=== PATIENT | female | born 1945 | race Caucasian/White ===

== ENCOUNTER 2018-07-17 13:15 | Emergency (ER) | payer MEDICARE ==
[~2018-07-17] VITALS: Ht 165.1 cm; Wt 65.8 kg
[2018-07-17 13:45] VITALS: BP 144/73
--- NOTE | 2018-07-17 14:28 | EKG ---
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
[2018-07-17 14:44] LABS: BILIRUBIN,URINE NEGATIVE (NEG); CLARITY,URINE CLEAR; COLOR,URINE YELLOW; NITRITE,URINE NEGATIVE (NEG); PH,URINE 7.5; PROTEIN,URINE NEGATIVE (NEG-TRACE); UROBILINOGEN,URINE 0.2 mg/dL (0.2 mg/dL)
[2018-07-17 14:48] LABS: BASO % 1 % (0-3); CREATININE 1.1 mg/dL (0.6-1.0); EOS # 0.6 x10^3/uL (0.0-0.7); EOS % 8 % (0-3); GFR 48.8; HEMATOCRIT 42.4 % (36.0-47.0); HEMOGLOBIN 14.6 g/dL (12.0-15.5); LYMPH # 1.1 x10^3/uL (1.0-4.8); LYMPH % 15 % (24-48); MEAN CORPUSCULAR HEMOGLOBIN 31 pg (25-35); MEAN CORPUSCULAR HGB CONC 35 g/dL (31-37); MEAN CORPUSCULAR VOLUME 91 fL (79-100); MONO # 0.6 x10^3/uL (0.0-1.1); MONO % 8 % (0-9); NEUT % 69 % (31-73); PLATELET COUNT 175 x10^3/uL (140-400); POTASSIUM 3.5 mmol/L (3.5-5.1); RED BLOOD COUNT 4.66 x10^6/uL (3.50-5.40); RED CELL DISTRIBUTION WIDTH 13.6 % (11.5-14.5); WHITE BLOOD COUNT 7.2 x10^3/uL (4.0-11.0)
[2018-07-17 14:54] LABS: ALBUMIN 3.9 g/dL (3.4-5.0); ALBUMIN/GLOBULIN RATIO 1.3 (1.0-1.7); BACTERIA,URINE FEW /HPF (0-FEW); RBC,URINE OCC /HPF (0-2); SQUAMOUS EPITHELIAL CELL,UR FEW /LPF; TOTAL BILIRUBIN 0.7 mg/dL (0.2-1.0); TOTAL PROTEIN 6.8 g/dL (6.4-8.2); WBC,URINE OCC /HPF (0-4)
[2018-07-17] MEDS: IV NORMAL SALINE 1000ML BAG 1,000 ML IV ONE (15:05)
[2018-07-17] MEDS: ONDANSETRON PF 4 MG/2 ML VIAL. IV ONE (15:05)
--- NOTE | 2018-07-17 15:08 | RAD ---
PQRS Compliance Statement: One or more of the following individualized dose reduction techniques were utilized for this examination: 1. Automated exposure control 2. Adjustment of the mA and/or kV according to patient size 3. Use of iterative reconstruction technique CT HEAD WITHOUT CONTRAST History: Weakness Comparison: None. Technique: Axial images are obtained of the head from the skull base through the vertex without IV contrast. Findings: No mass-effect, midline shift, extra-axial fluid collection, hemorrhage, or obvious acute infarction is identified. Basilar cisterns are patent. The ventricles and sulci are prominent, consistent with age-related cerebral atrophy. There is mild supratentorial white matter hypoattenuation. This is a nonspecific finding but is commonly due to chronic small vessel ischemic disease. Bone windows demonstrate no acute calvarial abnormality. The visualized paranasal sinuses are clear. Mastoid air cells are well aerated. IMPRESSION: No acute intracranial abnormality. Electronically signed by: Burak Peterson MD (07/17/2018 2:46 PM) [id number] [id number]
--- NOTE | 2018-07-17 15:37 | RAD ---
Chest, 2 views, 07/17/2018: HISTORY: Shortness of breath, dizziness Comparison is made to a study from 04/13/2009. The left ventricle is mildly enlarged. There is calcific plaquing of the aorta. The pulmonary vascularity is normal. No pulmonary infiltrate is seen. There is no evidence of pleural fluid. Mild spurring is present in the spine. A surgical plate and screws is evident in the lower cervical spine. IMPRESSION: 1. Mild cardiomegaly and aortic atherosclerosis. 2. No acute abnormality is detected. Electronically signed by: Stanley Ray MD (07/17/2018 3:32 PM) [facility]
--- NOTE | 2018-07-17 15:46 | PHYS DOC ---
Past Medical History Past Medical History: High Cholesterol, Hypertension, Hypothyroid, Other Additional Past Medical Histor: insomnia Past Surgical History: Other Additional Past Surgical Histo: partial hysterectomy, thyroidectomy Additional Information: 1/2 ppd Alcohol Use: Occasionally Additional Information: reports drinking beer at least once per week Drug Use: None Adult General Chief Complaint Chief Complaint: WEAKNESS/GENERALIZED HPI HPI Patient is a 73 year old [f__sex] who presents with [] Review of Systems Review of Systems Constitutional: Denies fever or chills [] Eyes: Denies change in visual acuity, redness, or eye pain [] HENT: Denies nasal congestion or sore throat [] Respiratory: Denies cough or shortness of breath [] Cardiovascular: No additional information not addressed in HPI [] GI: Denies abdominal pain, nausea, vomiting, bloody stools or diarrhea [] : Denies dysuria or hematuria [] Musculoskeletal: Denies back pain or joint pain [] Integument: Denies rash or skin lesions [] Neurologic: Denies headache, focal weakness or sensory changes [] Endocrine: Denies polyuria or polydipsia [] All other systems were reviewed and found to be within normal limits, except as documented in this note. Current Medications Current Medications Current Medications Medications (Trade) Dose Ordered Sig/Stephen Start Time Stop Time Status Last Admin Dose Admin Ondansetron HCl (Zofran) 4 mg 1X ONCE 07/17/18 14:45 07/17/18 14:46 DC 07/17/18 15:05 4 MG Sodium Chloride 1,000 ml @ 1,000 mls/hr 1X ONCE 07/17/18 14:45 07/17/18 15:44 DC 07/17/18 15:05 1,000 MLS/HR Allergies Allergies Allergies Coded Allergies Type Severity Reaction Last Updated Verified No Known Drug Allergies 07/17/18 No Physical Exam Physical Exam Constitutional: Well developed, well nourished, no acute distress, non-toxic appearance. [] HENT: Normocephalic, atraumatic, bilateral external ears normal, oropharynx moist, no oral exudates, nose normal. [] Eyes: PERRLA, EOMI, conjunctiva normal, no discharge. [] Neck: Normal range of motion, no tenderness, supple, no stridor. [] Cardiovascular:Heart rate regular rhythm, no murmur [] Lungs & Thorax: Bilateral breath sounds clear to auscultation [] Abdomen: Bowel sounds normal, soft, no tenderness, no masses, no pulsatile masses. [] Skin: Warm, dry, no erythema, no rash. [] Back: No tenderness, no CVA tenderness. [] Extremities: No tenderness, no cyanosis, no clubbing, ROM intact, no edema. [] Neurologic: Alert and oriented X 3, normal motor function, normal sensory function, no focal deficits noted. [] Psychologic: Affect normal, judgement normal, mood normal. [] Current Patient Data Vital Signs Vital Signs Date Time Temp Pulse Resp B/P (MAP) Pulse Ox O2 Delivery O2 Flow Rate FiO2 07/17/18 13:45 97.5 67 18 144/73 (96) 94 Room Air 97.5 Lab Values Laboratory Tests Test 07/17/18 14:25 White Blood Count 7.2 x10^3/uL (4.0-11.0) Red Blood Count 4.66 x10^6/uL (3.50-5.40) Hemoglobin 14.6 g/dL (12.0-15.5) Hematocrit 42.4 % (36.0-47.0) Mean Corpuscular Volume 91 fL (79-100) Mean Corpuscular Hemoglobin 31 pg (25-35) Mean Corpuscular Hemoglobin Concent 35 g/dL (31-37) Red Cell Distribution Width 13.6 % (11.5-14.5) Platelet Count 175 x10^3/uL (140-400) Neutrophils (%) (Auto) 69 % (31-73) Lymphocytes (%) (Auto) 15 % (24-48) L Monocytes (%) (Auto) 8 % (0-9) Eosinophils (%) (Auto) 8 % (0-3) H Basophils (%) (Auto) 1 % (0-3) Neutrophils # (Auto) 5.0 x10^3uL (1.8-7.7) Lymphocytes # (Auto) 1.1 x10^3/uL (1.0-4.8) Monocytes # (Auto) 0.6 x10^3/uL (0.0-1.1) Eosinophils # (Auto) 0.6 x10^3/uL (0.0-0.7) Basophils # (Auto) 0.0 x10^3/uL (0.0-0.2) Urine Collection Type Unknown Urine Color Yellow Urine Clarity Clear Urine pH 7.5 Urine Specific Hunter 1.010 Urine Protein Negative mg/dL (NEG-TRACE) Urine Glucose (UA) Negative mg/dL (NEG) Urine Ketones (Stick) Negative mg/dL (NEG) Urine Blood Negative (NEG) Urine Nitrite Negative (NEG) Urine Bilirubin Negative (NEG) Urine Urobilinogen Dipstick 0.2 mg/dL (0.2 mg/dL) Urine Leukocyte Esterase Negative (NEG) Urine RBC Occ /HPF (0-2) Urine WBC Occ /HPF (0-4) Urine Squamous Epithelial Cells Few /LPF Urine Bacteria Few /HPF (0-FEW) Sodium Level 139 mmol/L (136-145) Potassium Level 3.5 mmol/L (3.5-5.1) Chloride Level 99 mmol/L (98-107) Carbon Dioxide Level 30 mmol/L (21-32) Anion Gap 10 (6-14) Blood Urea Nitrogen 22 mg/dL (7-20) H Creatinine 1.1 mg/dL (0.6-1.0) H Estimated GFR (Cockcroft-Gault) 48.8 BUN/Creatinine Ratio 20 (6-20) Glucose Level 97 mg/dL (70-99) Calcium Level 9.0 mg/dL (8.5-10.1) Total Bilirubin 0.7 mg/dL (0.2-1.0) Aspartate Amino Transferase (AST) 24 U/L (15-37) Alanine Aminotransferase (ALT) 26 U/L (14-59) Alkaline Phosphatase 120 U/L (46-116) H Troponin I Quantitative < 0.017 ng/mL (0.000-0.055) Total Protein 6.8 g/dL (6.4-8.2) Albumin 3.9 g/dL (3.4-5.0) Albumin/Globulin Ratio 1.3 (1.0-1.7) Laboratory Tests 07/17/18 14:25 Laboratory Tests 07/17/18 14:25 EKG EKG [] Radiology/Procedures Radiology/Procedures []PATIENT: SUNNY BRASHER MACCOUNT: [id number]#: [id number] : 1945 LOCATION: ER AGE: 73 SEX: F EXAM STATUS: PRE ER ORD. PHYSICIAN: JUVENAL CARROLL APRN REASON: weakness PROCEDURE: CT HEAD WO CONTRAST PQRS Compliance Statement: One or more of the following individualized dose reduction techniques were utilized for this examination: 1. Automated exposure control 2. Adjustment of the mA and/or kV according to patient size 3. Use of iterative reconstruction technique CT HEAD WITHOUT CONTRAST History: Weakness Comparison: None. Technique: Axial images are obtained of the head from the skull base through the vertex without IV contrast. Findings: No mass-effect, midline shift, extra-axial fluid collection, hemorrhage, or obvious acute infarction is identified. Basilar cisterns are patent. The ventricles and sulci are prominent, consistent with age-related cerebral atrophy. There is mild supratentorial white matter hypoattenuation. This is a nonspecific finding but is commonly due to chronic small vessel ischemic disease. Bone windows demonstrate no acute calvarial abnormality. The visualized paranasal sinuses are clear. Mastoid air cells are well aerated. IMPRESSION: No acute intracranial abnormality. Electronically signed by: Burak Peterson MD (07/17/2018 2:46 PM) [id number] DICTATED and SIGNED BY: BURAK PETERSON MD DATE: 07/17/18 1441 Course & Med Decision Making Course & Med Decision Making Pertinent Labs and Imaging studies reviewed. (See chart for details) [] Dragon Disclaimer Dragon Disclaimer This electronic medical record was generated, in whole or in part, using a voice recognition dictation system. Departure Departure Impression: Primary Impression: Weakness Additional Impression: Dehydration Disposition: HOME, SELF-CARE Condition: STABLE Referrals: RORY GARCIA Jr, MD (PCP) Patient Instructions: Dehydration, Adult Additional Instructions: Increase fluids and rest. Follow-up with your primary care provider for recheck in 3 days or return to the emergency department if worsening. I am prescribing Zofran in case you develope nausea. Take as directed. Scripts Ondansetron Hcl (ZOFRAN) 4 Mg Tablet 1 TAB PO Q6HRS for nausea, #20 TAB Prov: JUVENAL CARROLL APRN 07/17/18 Problem Qualifiers JUVENAL CARROLL APRN Jul 17, 2018 15:46
[2018-07-17] MEDS ORDERED: ONDA4TAB7 PO (15:56)
== END 2018-07-17 16:37 | disposition home or self-care (01) ==
LOC: ER 13:15
DX: E86.0 Dehydration (principal); R53.1 Weakness; E78.00 Pure hypercholesterolemia, unspecified; I10 Essential (primary) hypertension; E03.9 Hypothyroidism, unspecified; F17.200 Nicotine dependence, unspecified, uncomplicated; Z90.710 Acquired absence of both cervix and uterus; Z90.89 Acquired absence of other organs
CPT/HCPCS: 36415; 70450; 71046; 80053; 81001; 84484; 85025; 93005; 96361; 96374; J2405; J7030; 99284-25

== ENCOUNTER 2018-11-03 07:04 | Emergency (ER) | payer MEDICARE ==
[~2018-11-03] VITALS: Ht 165.1 cm; Wt 65.8 kg
[2018-11-03 07:04] VITALS: BP 0/0
[~2018-11-03 07:04] MED LIST: ONDA4TAB7 PO
[2018-11-03] MEDS ORDERED: IV NORMAL SALINE 1000ML BAG 1,000 ML IV SCH (07:20)
--- NOTE | 2018-11-03 07:26 | EKG ---
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
--- NOTE | 2018-11-03 07:35 | RAD ---
PORTABLE CHEST 1V History: Unresponsive, endotracheal tube Comparison: July 17, 2018 Findings: Single view of the chest is submitted. There is enteric catheter coursing into the stomach and endotracheal tube terminating about 4 cm from irvin. There is no lobar consolidation, pleural fluid, pneumothorax. Heart size is stable, borderline enlarged. There is atherosclerotic calcification near the aortic arch. Impression: 1. There is endotracheal tube and enteric catheter. Electronically signed by: Sunny Ibrahim MD (11/03/2018 7:32 AM) [facility]
--- NOTE | 2018-11-03 08:03 | PHYS DOC ---
Past Medical History Past Medical History: High Cholesterol, Hypertension, Hypothyroid, Other Additional Past Medical Histor: insomnia Past Surgical History: Other Additional Past Surgical Histo: partial hysterectomy, thyroidectomy Alcohol Use: Occasionally Drug Use: None Adult General Chief Complaint Chief Complaint: unresponsive HPI HPI Patient is a 73 year old female who brought in by EMS because of unresponsiveness. Patient woke up this morning and wanted to go to the bathroom before leaving her bed became weak and almost falling on her bed according to her significant other and 911 was called. EMS reported that patient had hypoventilation and complaining of feeling hot in her head and numbness of her arms patient was bagging at arrival to ER and weak pulses including bilateral femoral pulses. Patient was intubated at 0717 and lost her pulse at 0725 and CPR was started with 6 shock and multiple doses of epinephrine + bicarbonate and amiodarone without responding to resuscitation. Patient was pronounced date at 0 745. Review of Systems Review of Systems Unable to obtain, patient is unresponsive Current Medications Current Medications Current Medications Medications (Trade) Dose Ordered Sig/Stephen Start Time Stop Time Status Last Admin Dose Admin Sodium Chloride 1,000 ml @ 1,000 mls/hr 1X ONCE 11/03/18 08:30 11/03/18 09:29 DC 11/03/18 07:18 1,000 MLS/HR Allergies Allergies Allergies Coded Allergies Type Severity Reaction Last Updated Verified No Known Drug Allergies 07/17/18 No Physical Exam Physical Exam Constitutional: Responsive, pale, HENT: Normocephalic, atraumatic Eyes: PERRLA, EOMI, conjunctiva normal, no discharge. [] Neck: Atraumatic Cardiovascular: Tachycardia Lungs & Thorax:Agonal breathing Abdomen: Moderately distended with air Skin: Warm, dry, no erythema, no rash. [] Extremities: Moves bilateral upper extremity with painful stimuli Neurologic: Unresponsive Current Patient Data Vital Signs Vital Signs Date Time Temp Pulse Resp B/P (MAP) Pulse Ox O2 Delivery O2 Flow Rate FiO2 11/03/18 07:24 96 11/03/18 07:04 97.3 12 0/0 (0) 100 Bag Valve Mask 97.3 Lab Values Laboratory Tests Test 11/03/18 07:16 11/03/18 07:27 11/03/18 07:44 Glucose (Fingerstick) 92 mg/dL (70-99) POC Troponin I 0.02 ng/ml (<0.08) POC Hemoglobin 9.5 g/dL (12-15) L POC Hematocrit 28 % (36-40) L POC Sodium 140 mmol/L (135-145) POC Potassium 4.0 mmol/L (3.5-5.0) POC Chloride 104 mmol/L (98-110) POC Total CO2 21 mmol/L (23-32) L Anion Gap 20 mmol/L (6-14) H POC Blood Urea Nitrogen 17 mg/dL (8-26) POC Creatinine 1.0 mg/dL (0.5-1.4) Glucose Level 89 mg/dL (70-99) POC Ionized Calcium (Zurdo) 1.11 mmol/L (1.13-1.32) L Laboratory Tests 11/03/18 07:44 EKG EKG EKG interpreted by me. EKG at 0709 showed sinus tachycardia at rate of 121, left atrial abnormalities, LVH, no acute ST and T-wave abnormality. Radiology/Procedures Radiology/Procedures [][facility] [address] [place] [address] IMAGING REPORT Signed PATIENT: SUNNY BRASHER ACCOUNT: [id number] : 1945 LOCATION: ER AGE: 73 SEX: F EXAM STATUS: REG ER ORD. PHYSICIAN: ANGELI DELEON MD REASON: unresponsive/et tube and og tube placement PROCEDURE: PORTABLE CHEST 1V PORTABLE CHEST 1V History: Unresponsive, endotracheal tube Comparison: July 17, 2018 Findings: Single view of the chest is submitted. There is enteric catheter coursing into the stomach and endotracheal tube terminating about 4 cm from irvin. There is no lobar consolidation, pleural fluid, pneumothorax. Heart size is stable, borderline enlarged. There is atherosclerotic calcification near the aortic arch. Impression: 1. There is endotracheal tube and enteric catheter. Electronically signed by: Christian Ibrahim MD (11/03/2018 7:32 AM) [facility] DICTATED and SIGNED BY: CHRISTIAN IBRAHIM MD DATE: 11/03/18 0732 Course & Med Decision Making Course & Med Decision Making Pertinent Labs and Imaging studies reviewed. (See chart for details) Evaluation of patient in ER showed 73-year-old female patient brought in to ER with unresponsive condition and a corner bleeding and was intubated in ER and lost her pulse had CPR with 6 time shock without responding to CPR and medication. Point of care. BNP and troponin was unremarkable. Family members informed about patient condition at arrival to ER and during CPR and after explanation. Dr. Olmedo was informed at [address] Linton regarding providing certificate. Dragon Disclaimer Dragon Disclaimer This electronic medical record was generated, in whole or in part, using a voice recognition dictation system. Departure Departure Impression: Primary Impression: Cardiopulmonary arrest Disposition: 20 (at 0745) Condition: Referrals: UNKNOWN PCP NAME (PCP) Intubation Procedure Intubation Procedure Intub Indication: Respiratory failure Consent: Unable to give consent due to emergent nature. Medications Used: see nursing note Procedure: The patient was placed in the appropriate position. Intubation was performed with direct cord visualization and using 7.5 endotracheal tube and was secured with device at 0717. Initial confirmation of placement included bilateral breath sounds, tube fogging, adequate chest rise, adequate pulse oximetry reading. A chest x-ray to verify correct placement of the tube showed appropriate tube position. The patient tolerated the procedure well. Complications: none. Critical Care Time Critical care time was 45 minutes exclusive of procedures. ANGELI DELEON MD November 03, 2018 08:03
[2018-11-03] MEDS ORDERED: IV NORMAL SALINE 1000ML BAG 1,000 ML IV ONE (08:30)
[2018-11-03 08:37] LABS: HEMOGLOBIN ISTAT 9.5 g/dL (12-15); ION CA ISTAT 1.11 mmol/L (1.13-1.32)
[2018-11-03] MEDS ORDERED: SUCCINYLCHOLINE 200 MG/10 ML VIAL. ONE (10:43)
[2018-11-03] MEDS ORDERED: ETOMIDATE 20 MG/10 ML VIAL. IV ONE (10:43)
[2018-11-03] MEDS ORDERED: EPINEPHrine SYRINGE 1 MG/10 ML SYRINGE ONE (12:00)
[2018-11-03] MEDS ORDERED: AMIODARONE 150 MG/3 ML VIAL ONE (12:00)
[2018-11-03] MEDS ORDERED: CALCIUM CHLORIDE 1,000 MG/10 ML DISP.SYRIN ONE (12:00)
[2018-11-03] MEDS ORDERED: SODIUM BICARB ADULT 8.4% 50 MEQ/50 ML DISP.SYRIN. ONE (12:00)
== END 2018-11-03 10:55 | disposition expired ==
LOC: ER 07:10
DX: I46.9 Cardiac arrest, cause unspecified (principal); E78.00 Pure hypercholesterolemia, unspecified; I10 Essential (primary) hypertension; E03.9 Hypothyroidism, unspecified
CPT/HCPCS: 31500; 71045; 80047; 82962; 84484; 92950; 93005; 99291; J0171; J0282; J3490; J7030